=== PATIENT | male | born 1985 | race Caucasian/White ===

== ENCOUNTER 2017-02-07 09:03 | Outpatient (CLI) | payer OTHER ==
[2017-02-07 09:49] LABS: eGFR (African) > 60; eGFR (Non-African) > 60
== END 2017-02-07 09:04 ==
LOC: LAB 09:03
PROVIDERS: ATTEND Family Medicine
DX: B35.1 Tinea unguium (principal); Z13.220 Encounter for screening for lipoid disorders
CPT/HCPCS: 36415; 80053; 80061